=== PATIENT | male | born 1980 | race Caucasian/White ===

== ENCOUNTER 2019-12-22 17:16 | Emergency (ER) | payer OTHER ==
[~2019-12-22] VITALS: Ht 180.3 cm; Wt 102.1 kg
[2019-12-22] MEDS ORDERED: LISINOPRIL10 MG PO (18:54)
[2019-12-22] MEDS ORDERED: BACTRIM DS TAB1 EACH PO (18:54)
[2019-12-22] MEDS ORDERED: KEFLEX500 MG PO (18:54)
[2019-12-22] MEDS ORDERED: HYDROCHLOROTHIA25 MG PO (18:54)
== END 2019-12-22 19:06 | disposition home or self-care (01) ==
LOC: ED 17:16
DX: L03.115 Cellulitis of right lower limb (principal); I10 Essential (primary) hypertension; E03.9 Hypothyroidism, unspecified; F17.200 Nicotine dependence, unspecified, uncomplicated
CPT/HCPCS: 99283; A9270

== ENCOUNTER 2020-01-23 02:51 | Emergency (ER) | payer OTHER ==
[~2020-01-23] VITALS: Ht 177.8 cm; Wt 99.8 kg
[~2020-01-23 02:51] MED LIST: BACTRIM DS TAB1 EACH PO; HYDROCHLOROTHIA25 MG PO; KEFLEX500 MG PO; LISINOPRIL10 MG PO
--- OUTSIDE RECORDS SUMMARY | 2020-01-23 02:54 | XMS ---
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 No recent Security Events currently on file CRITERIA MET - [facility] [place] PROVIDERS JOSE CARLOS SMITH Primary Care Current PHONE: Unknown ROSY MEZA Primary Care [facility] PHONE: Unknown Guidelines Source: [facility] Guidelines Date: 01/11/2020 Care Coordination: Receiving mental health services with [employer] [facility].\T\nbsp; Please contact [employer] [facility] for mental health concerns.\T\nbsp; [facility]: [phone]\T\ nbsp; [place]: [phone].\T\nbsp; E.D. VISIT COUNT (12 MO.) [address] [facility] TOTAL 2 NOTE: Visits indicate total known visits. ED/UCC VISIT TRACKING (12 MO.) 01/23/2020 02:52 [facility] TYPE: Emergency COMPLAINT: - DIZZINESS/DIFFICULTY SEEING 12/22/2019 17:16 [facility] TYPE: Emergency COMPLAINT: - SPIDER/BUG BITE DIAGNOSES: - Essential (primary) hypertension - Cellulitis of right lower limb - Nicotine dependence, unspecified, uncomplicated - Other specified soft tissue disorders - Hypothyroidism, unspecified INPATIENT VISIT TRACKING (12 MO.) No inpatient visits to display in this time frame [email or web address]
[2020-01-23] MEDS ORDERED: MECLIZINE HCL25 MG PO (04:42)
[2020-01-23] MEDS ORDERED: POTASSIUM CHLO10 MEQ PO (04:42)
[2020-01-23] MEDS ORDERED: TRANSDERM-SCOP1 EACH TD (04:42)
[2020-01-23] MEDS ORDERED: LISINOPRIL-HCT1 EAC1 PO (04:42)
== END 2020-01-23 05:08 | disposition home or self-care (01) ==
LOC: ED 02:51
DX: H81.399 Other peripheral vertigo, unspecified ear (principal); I10 Essential (primary) hypertension; E87.6 Hypokalemia; Z87.891 Personal history of nicotine dependence; Z79.899 Other long term (current) drug therapy
CPT/HCPCS: 70450; 80053; 83735; 85025; 96374; 99284-25; J2405

== ENCOUNTER 2021-09-01 12:55 | Emergency (ER) | payer OTHER ==
[~2021-09-01] VITALS: Ht 177.8 cm; Wt 83.9 kg
[~2021-09-01 12:55] MED LIST changes: +LISINOPRIL-HCT1 EAC1 PO; +MECLIZINE HCL25 MG PO; +POTASSIUM CHLO10 MEQ PO; +TRANSDERM-SCOP1 EACH TD
--- OUTSIDE RECORDS SUMMARY | 2021-09-01 12:58 | XMS ---
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 Care Guidelines exist for the following facilities: [facility] ( 01/11/2020 ) Abhinav VIS[facility] COUNT (12 MO.) [facility] T[facility] NOTE: Visits indicate total known visits. ED/UCC VISIT TRACKING (12 MO.) 09/01/2021 12:[address] [facility] [place] TYPE: Emergency COMPLAINT: - ITCHING ALL OVER BODY INPATIENT VISIT TRACKING (12 MO.) No inpatient visits to display in this time frame [email or web address]
[2021-09-01] MEDS ORDERED: EPIN0.3P IM (14:34)
== END 2021-09-01 14:48 | disposition home or self-care (01) ==
LOC: ED 12:55
DX: T63.441A Toxic effect of venom of bees, accidental (unintentional), initial encounter (principal); L50.9 Urticaria, unspecified; R00.0 Tachycardia, unspecified; I10 Essential (primary) hypertension; E03.9 Hypothyroidism, unspecified; Z87.891 Personal history of nicotine dependence; Z79.899 Other long term (current) drug therapy
CPT/HCPCS: 96374; 96375; 99282-25; J1100; J1200

== ENCOUNTER 2024-07-27 00:40 | Emergency (ER) | payer OTHER ==
[~2024-07-27] VITALS: Ht 180.3 cm; Wt 80.0 kg
[~2024-07-27 00:40] MED LIST changes: +CENTANY30 GM TOP; +CEPHALEXIN500 M1 PO; +EPIN0.3P IM
[2024-07-27] MEDS ORDERED: MIDAZOLAM HCL 2 MG/2 ML VIAL ONE (00:59)
[2024-07-27] MEDS ORDERED: propofoL 100 ML IV SCH (01:00)
[2024-07-27] MEDS ORDERED: LIDOCAINE 2% VISCOUS 6 ML SYR TOP ONE (01:00)
[2024-07-27 01:05] LABS: BASOPHILS 0.8 % (0-2); HEMATOCRIT 42.1 % (35.0-50.0); MCH 30.4 (27-36); MCHC 33.2 g/dl (30-36); MCV 91.5 fl (81-99); MONOCYTES 6.5 % (0-12); NEUTROPHILS 57.7 % (39-80); PLATELET COUNT 246 K/uL (140-440); RDW 13.1 (10.5-15.0)
[2024-07-27] MEDS ORDERED: ROCURONIUM BROMIDE 50 MG/5 ML VIAL IV ONE ×2 (01:15→02:15)
[2024-07-27] MEDS ORDERED: propofoL 200 MG/20 ML VIAL IV ONE ×2 (01:15→03:30)
[2024-07-27] MEDS ORDERED: ENALAPRILAT DIHYDRATE 1.25 MG/ML VIAL IV ONE (01:15)
[2024-07-27] MEDS ORDERED: MIDAZOLAM HCL 2 MG/2 ML VIAL IV ONE (01:15)
[2024-07-27 01:16] LABS: BILIRUBIN, URINE NEGATIVE (negative); BLOOD/HGB, URINE SMALL (Negative); KETONE, URINE NEGATIVE (Negative); LEUK ESTERASE, URINE NEGATIVE (negative); NITRITE, URINE NEGATIVE (negative)
[2024-07-27 01:17] LABS: ALBUMIN 3.9 g/dL (3.4-5.0); ANION GAP 15.2 (7-21); BILIRUBIN, TOTAL 0.3 ng/dL (0.2-1.0); BUN/CREATININE RATIO 12.88 (6.0-28.6); CALCIUM 8.4 mg/dL (8.5-10.1); CREATININE, SERUM 1.63 mg/dL (0.70-1.30); POTASSIUM 3.2 mmol/L (3.5-5.1); PROTEIN, TOTAL 7.8 g/dL (6.4-8.2)
[2024-07-27 01:23] LABS: EPITHELIAL CELLS, URINE SQUAMOUS 1+ /lpf (0-1+)
[2024-07-27 01:25] LABS: BACTERIA, URINE 1+ /hpf (negative); CASTS, URINE GRANULAR 1+ \\lpf; COLLECTION TYPE, URINE CLEAN CATCH; CRYSTALS, URINE NONE SEEN (0-1+); REFLEX CULTURE, URINE No (No); WHITE BLOOD CELLS, URINE 0-1 /HPF (0-5)
[2024-07-27 01:29] LABS: HCO3, BLOOD GAS 20.8 mmol/L (22-26); O2 SATURATION, BLOOD GAS 97.8 % (95.0-100.0); OXYGEN RECEIVED, BLOOD GAS VENT; PCO2, BLOOD GAS 44.6 mmHg (35-45); PH, BLOOD GAS 7.28 (7.35-7.45); PO2, BLOOD GAS 118 mmHg (80-100); TOTAL CO2, BLOOD GAS 22.1
[2024-07-27 01:31] LABS: AMPHETAMINES, URINE POSITIVE (NEGATIVE); BARBITURATES, URINE NEGATIVE (NEGATIVE); BENZODIAZEPINE, URINE NEGATIVE (NEGATIVE); BUPRENORPHINE, URINE NEGATIVE (NEGATIVE); CANNABINOID, URINE NEGATIVE (NEGATIVE); COCAINE, URINE NEGATIVE (NEGATIVE); ECSTASY, URINE POSITIVE (NEGATIVE); FENTANYL, URINE POSITIVE (NEGATIVE); METHADONE, URINE NEGATIVE (NEGATIVE); OPIATES, URINE NEGATIVE (NEGATIVE); OXYCODONE, URINE NEGATIVE (NEGATIVE); PHENCYCLIDINE, URINE NEGATIVE (NEGATIVE)
[2024-07-27] MEDS ORDERED: SODIUM BICARBONATE 50 MEQ/50 ML SYR IV SCH (01:45)
[2024-07-27] MEDS ORDERED: NITROGLYCERIN 50MG/D5W 250 ML IV SCH ×2 (01:45→02:45)
[2024-07-27] MEDS ORDERED: ESMOLOL HCL 250 ML IV SCH (01:45)
[2024-07-27] MEDS ORDERED: SODIUM CHLORIDE 0.9% 1,000 ML IV SCH (01:45)
[2024-07-27 02:00] LABS: MAGNESIUM 1.8 mg/dL (1.8-2.4)
[2024-07-27] MEDS ORDERED: FUROSEMIDE 20 MG/2 ML VIAL IV ONE (02:45)
[2024-07-27] MEDS ORDERED: HEParin SOD (PORCINE) 5,000 UNIT/ML VIAL IV ONE (02:45)
[2024-07-27] MEDS ORDERED: HEPARIN SOD,PORK IN 0.45% NACL 500 ML IV SCH (02:45)
[2024-07-27 02:51] LABS: INR 1.06 (0.80-1.30); PROTIME 13.1 Sec (11.2-14.2)
[2024-07-27] MEDS ORDERED: DEXTROSE 5% 100 ML IV ONE (04:00)
[2024-07-27 04:09] VITALS: BP 119/75
[2024-07-27] MEDS ORDERED: PIPERACILLIN/TAZOBACTAM 3.375 GM in DEXTROSE 5% 100 ML IV ONE (04:15)
--- NOTE | 2024-07-30 22:23 | EKG ---
[facility] [address] [place] [address] Signed Normal sinus rhythm Possible Left atrial enlargement Left ventricular hypertrophy ( Sokolow-Gillette , [place] product , Romhilt-Flores ) Abnormal QRS-T angle, consider primary T wave abnormality Prolonged QT Abnormal ECG No previous ECGs available Confirmed by Stefanie Johnson MD () on 07/30/2024 10:23:10 PM Electronically Signed By: STEFANIE JOHNSON MD 07/30/24 2223 PATIENT NAME: ELIZA COONEY GAYATHRI Electrocardiogram DATE OF : 76 PHYSICIAN: STEFANIE JOHNSON MD REPORT #: [id number] REPORT IS CONFIDENTIAL AND NOT TO BE RELEASED WITHOUT AUTHORIZATION
--- NOTE | 2024-07-30 22:24 | EKG ---
[facility] [address] [place] [address] Signed Sinus rhythm with marked sinus arrhythmia Possible Left atrial enlargement Left ventricular hypertrophy ( Sokolow-Gillette , Jhonny product , Romhilt-Flores ) Abnormal QRS-T angle, consider primary T wave abnormality Prolonged QT Abnormal ECG When compared with ECG of 27-JUL-2024 01:26, No significant change was found Confirmed by Stefanie Johnson MD () on 07/30/2024 10:24:20 PM Electronically Signed By: STEFANIE JOHNSON MD 07/30/242223 PATIENT NAME: ELIZA COONEY Electrocardiogram DATE OF : 76 PHYSICIAN: STEFANIE JOHNSON MD REPORT #: [id number] REPORT IS CONFIDENTIAL AND NOT TO BE RELEASED WITHOUT AUTHORIZATION
== END 2024-07-27 04:17 | disposition short-term general hospital (02) ==
LOC: ED 00:40 → EDBD 00:41 → ED 04:17
PROVIDERS: Family Medicine
DX: R09.2 Respiratory arrest (principal); T50.911A Poisoning by multiple unspecified drugs, medicaments and biological substances, accidental (unintentional), initial encounter; R79.89 Other specified abnormal findings of blood chemistry; I44.7 Left bundle-branch block, unspecified; I10 Essential (primary) hypertension
CPT/HCPCS: 36415; 36600; 70450; 70486; 71045; 71275; 72125; 74174; 80053; 80307; 81001; 82803; 83735; 83880; 84484; 85025; 85379; 85610; 85730; 93005; 93010; G0480; J1644; J1940; J2250; J2543; J2704; Q9967

== ENCOUNTER 2024-09-12 00:38 | Emergency (ER) | payer OTHER ==
[~2024-09-12] VITALS: Ht 172.7 cm; Wt 80.0 kg
[2024-09-12] MEDS ORDERED: BUPRENO-NALOX1 EACH SL (00:40)
[2024-09-12] MEDS ORDERED: ENALAPRILAT DIHYDRATE 1.25 MG/ML VIAL IV ONE (00:45)
[2024-09-12 00:50] LABS: BASOPHILS 1.1 % (0-2); EOSINOPHILS 2.2 % (0-6); HEMATOCRIT 40.6 % (35.0-50.0); HEMOGLOBIN 13.8 g/dL (12.0-18.0); LYMPHOCYTES 22.7 % (24-44); MCH 30.5 (27-36); MCHC 34.1 g/dl (30-36); MCV 89.3 fl (81-99); MONOCYTES 7.3 % (0-12); NEUTROPHILS 66.7 % (39-80); PLATELET COUNT 250 K/uL (140-440); RBC 4.54 M/ul (4.3-5.7); RDW 12.9 (10.5-15.0)
[2024-09-12 01:00] LABS: INR 1.05 (0.80-1.30); PROTIME 13.3 Sec (11.2-14.2)
[2024-09-12 01:02] LABS: PARTIAL THROMBOPLASTIN TIME 28.9 Sec (22.9-41.3)
[2024-09-12 01:13] LABS: ALBUMIN 3.3 g/dL (3.4-5.0); ALBUMIN/GLOBULIN RATIO 0.87 (1.1-2.4); ANION GAP 9.8 (7-21); BILIRUBIN, TOTAL 0.5 ng/dL (0.2-1.0); BUN/CREATININE RATIO 11.47 (6.0-28.6); CALCIUM 8.9 mg/dL (8.5-10.1); CREATININE, SERUM 1.22 mg/dL (0.70-1.30); POTASSIUM 3.8 mmol/L (3.5-5.1); PROTEIN, TOTAL 7.1 g/dL (6.4-8.2)
[2024-09-12] MEDS ORDERED: FUROSEMIDE 100 MG/10 ML VIAL IV ONE (01:30)
[2024-09-12] MEDS ORDERED: METOPROLOL TARTRATE 5 MG/5 ML VIAL IV ONE (02:00)
[2024-09-12 02:34] LABS: AMPHETAMINES, URINE POSITIVE (NEGATIVE); BARBITURATES, URINE NEGATIVE (NEGATIVE); BENZODIAZEPINE, URINE NEGATIVE (NEGATIVE); BUPRENORPHINE, URINE NEGATIVE (NEGATIVE); CANNABINOID, URINE NEGATIVE (NEGATIVE); COCAINE, URINE NEGATIVE (NEGATIVE); ECSTASY, URINE NEGATIVE (NEGATIVE); FENTANYL, URINE POSITIVE (NEGATIVE); METHADONE, URINE NEGATIVE (NEGATIVE); OPIATES, URINE NEGATIVE (NEGATIVE); OXYCODONE, URINE NEGATIVE (NEGATIVE); PHENCYCLIDINE, URINE NEGATIVE (NEGATIVE)
[2024-09-12] MEDS ORDERED: minoxidiL 10 MG TABLET PO ONE ×2 (02:45→04:45)
[2024-09-12] MEDS ORDERED: buprenorphine HCL 8 MG TAB.SUBL SL ONE (04:15)
[2024-09-12] MEDS ORDERED: LORazepam 2 MG/ML VIAL IV ONE (04:15)
[2024-09-12] MEDS ORDERED: MINOXIDIL10 MG PO (04:44)
[2024-09-12] MEDS ORDERED: Buprenorphine/Naloxone 8/2mg 1 EACH HOME.PACK SL ONE (04:45)
[2024-09-12 05:29] VITALS: BP 215/136
--- NOTE | 2024-09-13 12:01 | EKG ---
[facility] [address] [place] [address] Signed Normal sinus rhythm Possible Left atrial enlargement Left ventricular hypertrophy ( Sokolow-Gillette , Romhilt-Flores ) Nonspecific T wave abnormality Prolonged QT Abnormal ECG When compared with ECG of 27-JUL-2024 02:24, ST no longer depressed in Inferior leads T wave inversion no longer evident in Inferior leads Confirmed by Johnson Dumont MD ([id number]) on 09/13/2024 12:01:35 PM Electronically Signed By: JOHNSON DUMONT MD 09/13/24 1201 PATIENT NAME: ELIZA COONEY Electrocardiogram DATE OF : 76 PHYSICIAN: JOHNSON DUMONT MD REPORT #: [id number] REPORT IS CONFIDENTIAL AND NOT TO BE RELEASED WITHOUT AUTHORIZATION
== END 2024-09-12 05:32 | disposition home or self-care (01) ==
LOC: ED 00:38
PROVIDERS: Family Medicine
DX: I16.0 Hypertensive urgency (principal); F15.10 Other stimulant abuse, uncomplicated; F11.23 Opioid dependence with withdrawal; I10 Essential (primary) hypertension; E03.9 Hypothyroidism, unspecified; I25.2 Old myocardial infarction; Z87.891 Personal history of nicotine dependence; Z79.899 Other long term (current) drug therapy
CPT/HCPCS: 36415; 71045; 80053; 80307; 83735; 83880; 84484; 85025; 85610; 85730; 93005; 93010; 96374; 96375; 99284-25; A9270; J1940; J2060